=== PATIENT | male | born 1970 ===

== ENCOUNTER 2017-07-08 08:10 | Day surgery (SDC) | payer OTHER ==
[2017-07-08] MEDS ORDERED: Lactated Ringer's 1,000 ML IV ONE ×2 (08:40)
[2017-07-08] MEDS ORDERED: Propofol 10 mg/ml Inj (20 ML) ONE (10:07)
[2017-07-08 10:39] VITALS: TEMP 97
[2017-07-08 11:01] VITALS: BP 101/67; PULSE 70; RESP 16; O2SAT 99
== END 2017-07-08 11:10 | disposition home or self-care (01) ==
LOC: H.ENDO 08:10
PROVIDERS: ATTEND Internal Medicine Gastroenterology
DX: K64.8 Other hemorrhoids (principal); R19.5 Other fecal abnormalities; K30 Functional dyspepsia; K29.50 Unspecified chronic gastritis without bleeding; G40.909 Epilepsy, unspecified, not intractable, without status epilepticus; B96.81 Helicobacter pylori [H. pylori] as the cause of diseases classified elsewhere
CPT/HCPCS: 43239; 45378; 88305; J2001; J2704; J7120

== ENCOUNTER 2018-03-24 07:14 | Day surgery (SDC) | payer OTHER ==
[2018-03-24] MEDS ORDERED: Lactated Ringer's 500 ML IV ONE (07:48)
[2018-03-24] MEDS ORDERED: Propofol 10 mg/ml Inj (20 ML) ONE (09:02)
[2018-03-24] MEDS ORDERED: Midazolam 2 MG/2 ML VIAL ONE (09:02)
[2018-03-24] MEDS ORDERED: Benzocaine/Butamben/Tetracai 14-2-2% TOP Spray TOP ONE (09:09)
[2018-03-24 09:25] VITALS: TEMP 97
[2018-03-24 09:38] VITALS: BP 106/78; PULSE 98; RESP 26; O2SAT 98
== END 2018-03-24 12:34 | disposition home or self-care (01) ==
LOC: H.ENDO 07:14
PROVIDERS: ATTEND Internal Medicine Gastroenterology
DX: K30 Functional dyspepsia (principal); K44.9 Diaphragmatic hernia without obstruction or gangrene; K21.0 Gastro-esophageal reflux disease with esophagitis; K29.50 Unspecified chronic gastritis without bleeding; E78.5 Hyperlipidemia, unspecified
CPT/HCPCS: 43239; 88305; J2001; J2250; J2704; J7120